=== PATIENT | male | born 1955 | race Caucasian/White ===

== ENCOUNTER 2018-05-03 20:28 | Emergency (ER) | payer MEDICARE, OTHER ==
[~2018-05-03] VITALS: Ht 175.3 cm; Wt 97.5 kg
[~2018-05-03 20:28] MED LIST: ALLO100 PO; Aspirin EC81 MG; BENADRYL25 MG PO; CAND4; Cialis20 MG PO; DIALYVITE V5000 UNIT PO; FINA5 PO; FISH OIL 1,2001 EAC1 PO; HYDCHL25 PO; MELA3 PO; Metoprolol Tar100 MG PO; Multiple Vitam1 EAC1 PO; NITR.4SL SL; Norco 5-325 Ta1 EACH PO; ONDA8ODT PO; SPIHYD; Simvastatin20 MG PO; VERA80; VITAMIN D35000 UNIT PO
[2018-05-03 21:17] LABS: BASOPHILS ABSOLUTE AUTO 0.02 K/mm3 (0.00-0.23); BASOPHILS PERCENT AUTO 0 % (0-2); EOSINOPHILS ABSOLUTE AUTO 0.02 K/mm3 (0.00-0.68); EOSINOPHILS PERCENT AUTO 0 % (0-6); Hematocrit 44.4 % (37.0-53.0); IMMATURE GRAN ABSOLUTE AUTO 0.05 K/mm3 (0.00-0.10); IMMATURE GRAN PERCENT AUTO 0 % (0-1); LYMPHOCYTES ABSOLUTE AUTO 1.18 K/mm3 (0.84-5.20); LYMPHOCYTES PERCENT AUTO 8 % (21-46); MONOCYTES ABSOLUTE AUTO 1.08 K/mm3 (0.16-1.47); MONOCYTES PERCENT AUTO 8 % (4-13); Mean Corpuscular HGB 31.8 pg (26.0-34.0); Mean Corpuscular Volume 88 fL (80-100); Mean Platelet Volume 9.8 fL (9.1-12.4); NEUTROPHILS ABSOLUTE AUTO 11.99 K/mm3 (1.96-9.15); NEUTROPHILS PERCENT AUTO 84 % (41-73); Platelet Count 286 K/mm3 (150-400); RDW Coefficient Variation 12.9 % (11.7-14.2); RDW Standard Deviation 41.7 fL (35.1-46.3); Red Blood Cell Count 5.03 M/mm3 (4.30-5.90); White Blood Cell Count 14.34 K/mm3 (4.00-11.30)
[2018-05-03 21:35] LABS: Alanine Aminotransfer (ALT/SGP 36 U/L (12-78); Albumin/Globulin Ratio 1.2 (0.8-1.8); Alk Phos 51 U/L (50-136); Anion Gap 9 mmol/L (6-16); Aspartate Aminotrans (AST/SGOT 69 U/L (12-37); Bilirubin, Total 1.1 mg/dL (0.1-1.0); Blood Urea Nitrogen 25 mg/dL (8-24); Bun/Creatinine Ratio 20.3 (12.0-20.0); CO2, Blood 27 mmol/L (21-32); Calcium, Blood 8.7 mg/dL (8.5-10.1); Chloride, Blood 103 mmol/L (98-108); Creatinine, Blood 1.23 mg/dL (0.60-1.20); Globulin, Blood 3.2 g/dL (2.2-4.0); Glomerular Filtration Rate >60 (60-); Glucose, Blood 178 mg/dL (70-99); Potassium, Blood 3.4 mmol/L (3.5-5.5); Sodium, Blood 139 mmol/L (136-145); Total Protein, Blood 7.2 g/dL (6.4-8.2)
[2018-05-03 22:35] LABS: Source, Urine Clean Catch
[2018-05-03 22:37] LABS: Bilirubin, Urine Neg (Neg); Blood, Urine 5+ (Neg); Glucose Qualitative, Urine Neg (Neg); Ketones, Urine Neg (Neg); Leukocyte Esterase, Urine 1+ (Neg); Nitrite, Urine Neg (Neg); Protein, Urine 2+ (Neg); Urobilinogen, Urine NORM (Normal)
[2018-05-03 22:44] LABS: Appearance, Urine Hazy (Clear); Color, Urine Yellow (P-Yellow)
[2018-05-03 22:45] LABS: Bacteria Many /hpf; Red Blood Cells, Urine TNTC /hpf (0-2); Squamous Epithelial Cells Not Seen /hpf (Few); Yeast/Fungi Urine Few /hpf
[2018-05-03 22:46] LABS: Hyaline Casts 0-2 /lpf (0-2)
== END 2018-05-04 02:46 | disposition short-term general hospital (02) ==
LOC: ER 20:28
PROVIDERS: Emergency Medicine
DX: A41.9 Sepsis, unspecified organism (principal); N13.2 Hydronephrosis with renal and ureteral calculous obstruction; Z79.899 Other long term (current) drug therapy; Z79.82 Long term (current) use of aspirin; I10 Essential (primary) hypertension
CPT/HCPCS: 36415; 74018; 74177; 80053; 81001; 83690; 85025; 87086; 93005; 93010; 96361; 96374; 96375; 99285; J0696; J2405; J3010; J7030; Q9967

== ENCOUNTER 2023-05-24 23:55 | Emergency (ER) | payer MEDICARE ==
[~2023-05-24] VITALS: Ht 175.3 cm; Wt 90.7 kg
[2023-05-25 00:33] LABS: BASOPHILS ABSOLUTE AUTO 0.02 K/mm3 (0.00-0.23); BASOPHILS PERCENT AUTO 0 % (0-2); EOSINOPHILS PERCENT AUTO 0 % (0-6); Hematocrit 46.6 % (37.0-53.0); Hemoglobin 16.7 g/dL (13.5-17.5); IMMATURE GRAN ABSOLUTE AUTO 0.02 K/mm3 (0.00-0.10); IMMATURE GRAN PERCENT AUTO 0 % (0-1); LYMPHOCYTES ABSOLUTE AUTO 0.96 K/mm3 (0.84-5.20); LYMPHOCYTES PERCENT AUTO 11 % (21-46); MONOCYTES ABSOLUTE AUTO 0.14 K/mm3 (0.16-1.47); MONOCYTES PERCENT AUTO 2 % (4-13); Mean Corpuscular HGB 31.7 pg (26.0-34.0); Mean Corpuscular HGB Conc 35.8 g/dL (31.5-36.5); Mean Corpuscular Volume 89 fL (80-100); Mean Platelet Volume 10.1 fL (9.1-12.4); NEUTROPHILS ABSOLUTE AUTO 7.51 K/mm3 (1.96-9.15); NEUTROPHILS PERCENT AUTO 87 % (41-73); Platelet Count 294 K/mm3 (150-400); RDW Coefficient Variation 13.1 % (11.7-14.2); RDW Standard Deviation 42.7 fL (35.1-46.3); Red Blood Cell Count 5.26 M/mm3 (4.30-5.90); White Blood Cell Count 8.65 K/mm3 (4.00-11.30)
[2023-05-25 00:46] LABS: Albumin, Blood 4.3 g/dL (3.4-5.0); Albumin/Globulin Ratio 1.3 (0.8-1.8); Bilirubin, Total 0.8 mg/dL (0.1-1.0); Bun/Creatinine Ratio 35.1 (12.0-20.0); Calcium, Blood 9.3 mg/dL (8.5-10.1); Creatinine, Blood 0.68 mg/dL (0.60-1.20); Globulin, Blood 3.2 g/dL (2.2-4.0); Potassium, Blood 3.5 mmol/L (3.5-5.5); Total Protein, Blood 7.5 g/dL (6.4-8.2)
[2023-05-25] MEDS ORDERED: FINA5 PO (01:34)
[2023-05-25 03:30] VITALS: BP 137/90
== END 2023-05-25 03:41 | disposition home or self-care (01) ==
LOC: ER 23:55
PROVIDERS: Student in an Organized Health Care Education/Training Program
DX: R42 Dizziness and giddiness (principal); R61 Generalized hyperhidrosis; I10 Essential (primary) hypertension; I25.10 Atherosclerotic heart disease of native coronary artery without angina pectoris; Z79.82 Long term (current) use of aspirin; Z79.899 Other long term (current) drug therapy; Z95.1 Presence of aortocoronary bypass graft
CPT/HCPCS: 71046; 80053; 83690; 84484; 85025; 93005; 93010; 96360; 99284-25; A9270; J7030

== ENCOUNTER 2024-06-25 15:23 | Emergency (ER) | payer MEDICARE ==
[~2024-06-25] VITALS: Ht 177.8 cm; Wt 88.5 kg
[2024-06-25 15:59] LABS: BASOPHILS ABSOLUTE AUTO 0.05 K/mm3 (0.00-0.23); BASOPHILS PERCENT AUTO 1 % (0-2); EOSINOPHILS ABSOLUTE AUTO 0.31 K/mm3 (0.00-0.68); EOSINOPHILS PERCENT AUTO 4 % (0-6); Hematocrit 45.4 % (37.0-53.0); Hemoglobin 16.5 g/dL (13.5-17.5); IMMATURE GRAN ABSOLUTE AUTO 0.02 K/mm3 (0.00-0.10); IMMATURE GRAN PERCENT AUTO 0 % (0-1); LYMPHOCYTES ABSOLUTE AUTO 2.68 K/mm3 (0.84-5.20); LYMPHOCYTES PERCENT AUTO 33 % (21-46); MONOCYTES PERCENT AUTO 7 % (4-13); Mean Corpuscular HGB 31.6 pg (26.0-34.0); Mean Corpuscular HGB Conc 36.3 g/dL (31.5-36.5); Mean Corpuscular Volume 87 fL (80-100); Mean Platelet Volume 10.1 fL (9.1-12.4); NEUTROPHILS ABSOLUTE AUTO 4.45 K/mm3 (1.96-9.15); NEUTROPHILS PERCENT AUTO 55 % (41-73); Platelet Count 327 K/mm3 (150-400); RDW Coefficient Variation 13.1 % (11.7-14.2); RDW Standard Deviation 41.9 fL (35.1-46.3); Red Blood Cell Count 5.22 M/mm3 (4.30-5.90); White Blood Cell Count 8.11 K/mm3 (4.00-11.30)
[2024-06-25 16:10] LABS: Albumin, Blood 4.1 g/dL (3.4-5.0); Albumin/Globulin Ratio 1.3 (0.8-1.8); Bilirubin, Total 0.7 mg/dL (0.1-1.0); Bun/Creatinine Ratio 25.2 (12.0-20.0); Calcium, Blood 8.9 mg/dL (8.5-10.1); Creatinine, Blood 0.8 mg/dL (0.60-1.20); Globulin, Blood 3.2 g/dL (2.2-4.0); Potassium, Blood 3.4 mmol/L (3.5-5.5); Total Protein, Blood 7.3 g/dL (6.4-8.2)
[2024-06-25 16:31] LABS: Source, Urine Clean Catch
[2024-06-25 16:39] LABS: Appearance, Urine Bloody (Clear); Bilirubin, Urine Neg (Neg); Blood, Urine 5+ (Neg); Color, Urine Red (P-Yellow); Glucose Qualitative, Urine Neg (Neg); Ketones, Urine 2+ (Neg); Leukocyte Esterase, Urine Neg (Neg); Nitrite, Urine Neg (Neg); Protein, Urine 4+ (Neg); Urobilinogen, Urine NORM (Normal); pH, Urine 6.5 (5.0-8.0)
[2024-06-25] MEDS ORDERED: NS 1,000 ML IV ONE (16:45)
[2024-06-25 16:48] LABS: Red Blood Cells, Urine TNTC /hpf (0-2)
[2024-06-25 16:49] LABS: Bacteria Many /hpf; Squamous Epithelial Cells Rare /hpf (Few)
[2024-06-25 18:20] VITALS: BP 130/94
== END 2024-06-25 18:28 | disposition home or self-care (01) ==
LOC: ER 15:23
PROVIDERS: Emergency Medicine
DX: N20.0 Calculus of kidney (principal); R31.9 Hematuria, unspecified; I25.10 Atherosclerotic heart disease of native coronary artery without angina pectoris; E87.6 Hypokalemia; I10 Essential (primary) hypertension; Z87.442 Personal history of urinary calculi; Z79.82 Long term (current) use of aspirin; Z79.899 Other long term (current) drug therapy
CPT/HCPCS: 74177; 80053; 81001; 85025; 87086; 99284-25; J7030; Q9967

== ENCOUNTER 2024-06-29 18:23 | Emergency (ER) | payer MEDICARE ==
[~2024-06-29] VITALS: Ht 177.8 cm; Wt 83.9 kg
[2024-06-29 20:00] VITALS: BP 122/68
== END 2024-06-29 20:02 | disposition home or self-care (01) ==
LOC: ER 18:23
DX: T83.091A Other mechanical complication of indwelling urethral catheter, initial encounter (principal); I10 Essential (primary) hypertension; Z79.82 Long term (current) use of aspirin; Z79.899 Other long term (current) drug therapy
CPT/HCPCS: 51700; 51798; 99283-25

== ENCOUNTER 2024-07-07 17:43 | Emergency (ER) | payer MEDICARE ==
[~2024-07-07] VITALS: Ht 177.8 cm; Wt 88.5 kg
[2024-07-07] MEDS ORDERED: Lidocaine 2% Jelly Uro-Jet UR ONE (19:45)
[2024-07-07 19:47] VITALS: BP 144/84
[2024-07-07 20:34] LABS: Source, Urine Foley catheter
[2024-07-07 20:39] LABS: Appearance, Urine Bloody (Clear); Bilirubin, Urine Neg (Neg); Blood, Urine 4+ (Neg); Color, Urine Red (P-Yellow); Glucose Qualitative, Urine Neg (Neg); Ketones, Urine Neg (Neg); Leukocyte Esterase, Urine Neg (Neg); Nitrite, Urine Neg (Neg); Protein, Urine 4+ (Neg); Urobilinogen, Urine NORM (Normal)
[2024-07-07 20:49] LABS: Red Blood Cells, Urine TNTC /hpf (0-2)
[2024-07-07 20:51] LABS: Bacteria Few /hpf; Squamous Epithelial Cells Not Seen /hpf (Few)
[2024-07-10] MEDS ORDERED: SULTRIDS PO (08:28)
== END 2024-07-07 20:45 | disposition home or self-care (01) ==
LOC: ER 17:43
PROVIDERS: Emergency Medicine
DX: T83.091A Other mechanical complication of indwelling urethral catheter, initial encounter (principal); R31.0 Gross hematuria; I10 Essential (primary) hypertension
CPT/HCPCS: 51702; 81001; 87077; 87086; 87186; 99283-25

== ENCOUNTER → 2024-07-29 | Outpatient (CLI) | payer MEDICARE ==
[~2024-07-29] MED LIST changes: +SULTRIDS PO
== END ==
LOC: LAB 17:45 → LAB SHORT 17:45
DX: N40.1 Benign prostatic hyperplasia with lower urinary tract symptoms (principal); N13.8 Other obstructive and reflux uropathy
CPT/HCPCS: 87077; 87086; 87186

== ENCOUNTER 2025-03-09 11:59 | Day surgery (SDC) | payer MEDICARE ==
[~2025-03-09] VITALS: Ht 177.8 cm; Wt 95.0 kg
[~2025-03-09 11:59] MED LIST changes: +Lidocaine HCl 2% 10 ML SDA ONE
[2025-03-09] MEDS ORDERED: CeFAZolin Sodium 2,000 MG VIAL ONE (12:22)
[2025-03-09] MEDS ORDERED: Simvastatin40 MG PO (12:43)
[2025-03-09] MEDS ORDERED: DOXYLAMINE-PYR1 EAC1 PO (12:45)
[2025-03-09] MEDS ORDERED: TADALAFIL5 M1 (12:46)
[2025-03-09] MEDS ORDERED: TADALAFIL10 MG PO (12:47)
[2025-03-09] MEDS ORDERED: Lactated Ringer's 1,000 ML IV ONE (12:54)
[2025-03-09] MEDS ORDERED: DONEPEZIL HCL5 M2 PO (13:17)
--- NOTE | 2025-03-09 13:46 | NUR ---
03/09/25 1346 MAGGIE YOU T/O W/ DR FLOREZ 1336 BLK 1337 9ML LIDOCAINE 1% W/ EPI 1;1000K- SODIUM BICARB 1ML
[2025-03-09] MEDS ORDERED: propofoL 20 ML IV ONE (13:58)
[2025-03-09] MEDS ORDERED: FentaNYL Citrate 50 MCG/ML 2 ML Injection ONE (13:58)
[2025-03-09 15:07] VITALS: BP 125/80
--- NOTE | 2025-03-09 15:27 | NUR ---
03/09/25 1527 [place] PRESENT FOR ALL DISCHARGE INSTRUCTIONS. PT DENIES PAIN BUT IS CAUTIONED ABOUT WBAT STATUS TO RIGHT HAND. TOLERATING FOOD AND FLUIDS, DENIES NAUSEA.
== END 2025-03-09 15:30 | disposition home or self-care (01) ==
LOC: ORSCSDS 11:59
PROVIDERS: Orthopaedic Surgery
PROC: 0LB50ZZ Excision of Right Lower Arm and Wrist Tendon, Open Approach (ICD-10-PCS; principal; 2025-03-09 14:00)
DX: R22.31 Localized swelling, mass and lump, right upper limb (principal); M19.041 Primary osteoarthritis, right hand; M19.031 Primary osteoarthritis, right wrist; M19.032 Primary osteoarthritis, left wrist; I10 Essential (primary) hypertension; E78.5 Hyperlipidemia, unspecified; I25.10 Atherosclerotic heart disease of native coronary artery without angina pectoris; G47.33 Obstructive sleep apnea (adult) (pediatric); B19.10 Unspecified viral hepatitis B without hepatic coma; E66.9 Obesity, unspecified; Z68.30 Body mass index [BMI] 30.0-30.9, adult; Z79.82 Long term (current) use of aspirin; Z79.899 Other long term (current) drug therapy
CPT/HCPCS: 88304; J0690; J2003; J2704; J3010

== ENCOUNTER 2025-10-12 06:43 | Day surgery (SDC) | payer MEDICARE ==
[~2025-10-12] VITALS: Ht 177.8 cm; Wt 89.1 kg
[~2025-10-12 06:43] MED LIST changes: +CeFAZolin Sodium 2,000 MG VIAL ONE; +DONEPEZIL HCL5 M2 PO; +DOXYLAMINE-PYR1 EAC1 PO; -Lidocaine HCl 2% 10 ML SDA ONE; +Simvastatin40 MG PO; +TADALAFIL10 MG PO; +TADALAFIL5 M1; +Tranexamic Acid 100 ML IV ONE
--- NOTE | 2025-10-12 06:58 | NUR ---
10/12/25 0658 MAGGIE YOU PT CALLED AT 0622 AND TOLD HIM WE EXPECTED HIM AT 0600 THIS MORNING CHECK IN; HE WAS TOLD BY DR Solomon OFFICE CHECK IN 0700. ARRIVED [id number]
[2025-10-12] MEDS ORDERED: TADALAFIL5 M1 PO (07:03)
[2025-10-12] MEDS ORDERED: Midazolam HCl 1MG / ML 2ML Vial ONE (07:08)
[2025-10-12] MEDS ORDERED: Rocuronium Bromide 10 MG/ML 5ML Injection IV ONE (07:09)
[2025-10-12] MEDS ORDERED: Ondansetron HCl 2 MG / ML 2ML Vial ONE (07:09)
[2025-10-12] MEDS ORDERED: Dexamethasone Sod Phos 10 MG/ML 1ML VIAL ONE (07:09)
[2025-10-12] MEDS ORDERED: Ropivacaine 0.5% HCL/PF 5 MG/ML 30ML Vial ONE (07:10)
[2025-10-12] MEDS ORDERED: FentaNYL Citrate 50 MCG/ML 2 ML Injection ONE (08:11)
[2025-10-12] MEDS ORDERED: Sugammadex Sodium 200 MG/2ML SDV (100 MG/ML) ONE (09:01)
[2025-10-12] MEDS ORDERED: Bupivacaine 0.5% W/EPI 1:200000 SDV 30 ML Vial ONE (09:10)
[2025-10-12] MEDS ORDERED: ePHEDrine Sulfate 50 MG/ML 1ML Injection ONE (10:52)
[2025-10-12] MEDS ORDERED: Tranexamic Acid 100 ML IV ONE (10:55)
--- NOTE | 2025-10-12 11:14 | NUR ---
10/12/25 1114 Sharmin Avilez UP IN [place] TXA INFUSING RADHA WELL, AT BEDSIDE, VSS NO C/O PAIN.
[2025-10-12 12:56] VITALS: BP 108/63
== END 2025-10-12 12:38 | disposition home or self-care (01) ==
LOC: ORSCSDS 06:43
PROVIDERS: Orthopaedic Surgery
PROC: 0RRK00Z Replacement of Left Shoulder Joint with Reverse Ball and Socket Synthetic Substitute, Open Approach (ICD-10-PCS; principal; 2025-10-12 07:30)
DX: M19.012 Primary osteoarthritis, left shoulder (principal); I10 Essential (primary) hypertension; E78.5 Hyperlipidemia, unspecified; I25.10 Atherosclerotic heart disease of native coronary artery without angina pectoris; Z79.899 Other long term (current) drug therapy; Z79.82 Long term (current) use of aspirin
CPT/HCPCS: 73030; A9270; C1713; C1776; J0690; J1100; J2250; J2405; J2704; J2795; J3010; J7120